=== PATIENT | female | born 1985 | race Hispanic/Latino ===

== ENCOUNTER 2016-11-25 23:17 | Emergency (ER) | payer SELFPAY ==
[2016-11-26 00:06] LABS: Bilirubin Negative (Negative); Blood, Urine Negative (Negative); Glucose, Urine (Dipstick) Negative (Negative); Ketone, Urine Negative (Negative); Nitrite Negative (Negative); Protein, Urine (Dipstick) Negative (Neg-Trace); Urobilinogen 0.2 mg/dL (0.2-1.0)
== END 2016-11-26 02:18 | disposition home or self-care (01) ==
LOC: ERS 23:17
DX: N76.4 Abscess of vulva (principal); F41.9 Anxiety disorder, unspecified; F32.9 Major depressive disorder, single episode, unspecified; F17.210 Nicotine dependence, cigarettes, uncomplicated; G47.00 Insomnia, unspecified
CPT/HCPCS: 81003; 81025; 99283

== ENCOUNTER 2017-03-27 14:00 | Emergency (ER) | payer SELFPAY ==
[2017-03-27 14:59] LABS: Bilirubin Negative (Negative); Blood, Urine Negative (Negative); Clarity CLEAR (Clear); Glucose, Urine (Dipstick) Negative (Negative); Leukocyte Negative (Negative); Nitrite Negative (Negative); Protein, Urine (Dipstick) Negative (Neg-Trace); Urobilinogen 0.2 mg/dL (0.2-1.0)
[2017-03-27 15:27] LABS: #Eosinphils 0.1 thou/uL (0.0-0.7); #Lymphocytes 2.4 thou/uL (1.20-3.40); #Monocytes 0.4 thou/uL (0.11-0.59); #Neutrophils 5.5 thou/uL (1.40-6.50); %Basophils 0.4 % (0.0-1.0); %Eosinophils 1.7 % (0.0-10.0); %Lymphocytes 28.1 % (21.0-51.0); %Neutrophils 64.7 % (42.0-75.0); Hemoglobin 14.7 g/dL (12.0-16.0); Mean Corpuscular HGB CONC 27.9 g/dL (32.0-36.0); Mean Corpuscular Hemoglobin 26.2 pg (27.0-31.0); Mean Platelet Volume 7.6 fL (7.4-10.4); Platelet Count 419 thou/uL (130-400); RBC Distribution Width 12.3 % (11.5-14.5); White Blood Cell (WBC) Count 8.4 thou/uL (4.8-10.8)
[2017-03-27 15:39] LABS: PLT Morphology Comment Appears Increased; RBC Morphology Normal
[2017-03-27 15:52] LABS: ALT (SGPT) 21 U/L (8-55); AST (SGOT) 16 U/L (5-34); Albumin 4.4 g/dL (3.5-5.0); Alkaline Phosphatase 89 U/L (40-150); Anion Gap 13 mmol/L (10-20); BUN (Urea Nitrogen) 9 mg/dL (7.0-18.7); Bilirubin, Total 0.4 mg/dL (0.2-1.2); Calc. Creatinine Clearance 0 mL/min (70-130); Calcium 9.7 mg/dL (7.8-10.44); Carbon Dioxide 19 mmol/L (22-29); Chloride 108 mmol/L (98-107); Estimated GFR-MDRD Greater than 90; Globulin 3.3 g/dL (2.4-3.5); Glucose 79 mg/dL (70-105); Potassium 3.9 mmol/L (3.5-5.1); Protein, Total 7.7 g/dL (6.0-8.3); Sodium 136 mmol/L (136-145)
--- NOTE | 2017-03-27 20:08 | ULT ---
PELVIC ULTRASOUND: Date: 03/27/17 HISTORY: 6 week patient. Cramping. COMPARISON: None. TECHNIQUE: Endovaginal imaging of pelvis performed. Ovaries interrogated with Villareal scale, color flow, Doppler im aging, and spectral waveform analysis. FINDINGS: Uterus identified, measuring 8.6 x 5.0 x 5.8 cm. No myometrial masses. Within the endometrium, there is a gestational sac and a yolk sac. Definite pole is not appreciated. Gestational age by mean sac diameter of 0.93 cm is 5 weeks/5 days. There is no free fluid. Left and right ovaries have a normal echotexture measuring 4.3 x 2.7 x 2.9 cm and 2.6 x 1.8 x 2.4 cm, respectively. OVARIAN DOPPLER: Vascular flow to both ovaries. IMPRESSION: Gestational sac and yolk sac within the endometrium. A definite pole is not seen. Gestational a ge by mean sac diameter is 5 weeks/5 days. Early intrauterine is favored. Follow-up ultraso und with serial beta HCGs are recommended. POS: [facility]
[2017-03-28 22:53] LABS: Chlamydia by PCR Not Detected (NotDetected); GC by PCR Not Detected (NotDetected)
== END 2017-03-27 20:57 | disposition home or self-care (01) ==
LOC: ERS 14:00
DX: O99.89 Other specified diseases and conditions complicating pregnancy, childbirth and the puerperium (principal); R10.30 Lower abdominal pain, unspecified; O99.331 Smoking (tobacco) complicating pregnancy, first trimester; F17.210 Nicotine dependence, cigarettes, uncomplicated; O99.341 Other mental disorders complicating pregnancy, first trimester; F41.9 Anxiety disorder, unspecified; F32.9 Major depressive disorder, single episode, unspecified; G47.00 Insomnia, unspecified; Z3A.01 Less than 8 weeks gestation of pregnancy
CPT/HCPCS: 36415; 76856; 80053; 81003; 84702; 85025; 87480; 87491; 87510; 87591; 87660

== ENCOUNTER 2017-05-13 03:43 | Emergency (ER) | payer OTHER, SELFPAY ==
[2017-05-13] MEDS ORDERED: Metoclopramide HCl 10 MG/2 ML VIAL ONE (04:27)
--- NOTE | 2017-05-13 09:17 | ULT ---
PRELIMINARY REPORT/[facility]/EMERGENCY AFTER HOURS PROCEDURE: EXAM: US After First Trimester, Transabdominal EXAM DATE/TIME: Exam ordered 05/13/2017 4:35 AM CLINICAL HISTORY: 32 years old, female; Pain and signs and symptoms; Lmp or gestational age (in weeks): 13w1d; Antepart um complications; Other: N/v/d; complicated by abdominal or pelvic pain; Left lower quadran t; Second trimester; TECHNIQUE: Real-time transabdominal obstetrical ultrasound of the maternal pelvis and a second or third trimeste r with image documentation. COMPARISON: No relevant prior studies available. FINDINGS: Fetus: There is a live intrauterine with estimated gestational age of 13 weeks 1 day. Heart rate: heart rate measures approximately 169 beats per minute. Presentation: Breech Placenta: The placenta is probably anterior. BIOMETRICS Gestational age by US: 13 weeks 1 day EFW: Gestation is too early for estimated weight. MATERNAL: Uterus: Normal. No myometrial mass. Cervix: Unremarkable as visualized. Closed. Adnexa: The LEFT ovary measures 3.4 x 2.2 x 2.9 cm. normal blood flow. The RIGHT ovary measures 2.6 x 2.9 x 1.9 cm. normal blood flow. Free fluid: No free fluid. IMPRESSION: There is a live intrauterine with estimated gestational age of 13 weeks 1 day. EXAM: US Duplex Arterial/Venous of the Pelvis, Complete EXAM DATE/TIME: Exam ordered 05/13/2017 4:35 AM CLINICAL HISTORY: 32 years old, female; Pain and signs and symptoms; Lmp or gestational age (in weeks): 13w1d; Antepart um complications; Other: N/v/d; complicated by abdominal or pelvic pain; Left lower quadran t; Second trimester; TECHNIQUE: Real-time duplex ultrasound scan of the arterial and venous flow of the pelvis with color Doppler david w and spectral waveform analysis. COMPARISON: No relevant prior studies available. FINDINGS: Right ovary: Normal. Normal arterial and venous blood flow. No torsion. Left ovary: Normal. Normal arterial and venous blood flow. No torsion. IMPRESSION: Normal duplex ultrasound of the ovaries. Thank you for allowing us to participate in the care of your patient. Dictated and Authenticated by: Joshua Diaz MD 05/13/2017 6:05 AM Central Time ([place] & [place]) FINAL REPORT LIMITED OB ULTRASOUND: Date: 05/13/17 FINDINGS/IMPRESSION: I agree with the preliminary report given by Dr. Joshua Diaz of [facility]. POS: OFF
== END 2017-05-13 06:22 | disposition home or self-care (01) ==
LOC: ERS 03:43
DX: O21.9 Vomiting of pregnancy, unspecified (principal); O99.341 Other mental disorders complicating pregnancy, first trimester; F32.9 Major depressive disorder, single episode, unspecified; F41.9 Anxiety disorder, unspecified; Z3A.13 13 weeks gestation of pregnancy
CPT/HCPCS: 76815; 96365; J2765

== ENCOUNTER 2017-06-12 20:52 | Emergency (ER) | payer OTHER ==
[2017-06-12 22:55] LABS: Bilirubin Negative (Negative); Blood, Urine Negative (Negative); Clarity CLEAR (Clear); Glucose, Urine (Dipstick) Negative (Negative); Leukocyte Negative (Negative); Nitrite Negative (Negative); Protein, Urine (Dipstick) Negative (Neg-Trace); Specific Gravity, Urine 1.011 (1.002-1.036); Urobilinogen 0.2 mg/dL (0.2-1.0); pH, Urine 6.5 (5.0-9.0)
[2017-06-12 22:56] LABS: Pregnancy Test - Urine (BHCG) POSITIVE (Negative); Pregu Control Background? CLEAR/WHITE (CLR/WHITE); Pregu Control Bar Appear? YES (CONTROL BAR); Specific Gravity 1.011 (1.002-1.036)
--- NOTE | 2017-06-12 23:06 | ULT ---
OB ULTRASOUND: Comparison: 05-13-17 History: 16-17 week , now with left lower quadrant abdominal/pelvic pain. Technique: Multiplanar grayscale and color doppler images were obtained in a transabdominal ult rasound. FINDINGS: There is a single live intrauterine with heart rate of 147 beats/minute. A limited to rvey was performed which is unremarkable. Average age of the fetus based off today's examination is 1 7 weeks 1 day. The following measurements were taken, as follows: BPD 3.64 cm 17 weeks 1 day HC 13.80 cm 17 weeks 1 day AC 11.81 cm 17 weeks 4 days FL 2.28 cm 15 weeks 6 days The placenta is on the right side of the uterus without evidence of placenta previa and without evide nce of abruption. Amniotic fluid volume is subjectively within normal limits. No free fluid is seen in the pelvis. The urinary bladder is unremarkable. No abnormality is seen in t he left adnexal region. IMPRESSION: Single live intrauterine with estimated age of 17 weeks 1 day. POS: [facility]
[2017-06-12 23:13] LABS: #Basophils 0.1 thou/uL (0.0-0.2); #Eosinphils 0.2 thou/uL (0.0-0.7); #Lymphocytes 3.4 thou/uL (1.20-3.40); #Monocytes 0.6 thou/uL (0.11-0.59); #Neutrophils 7.4 thou/uL (1.40-6.50); %Basophils 0.8 % (0.0-1.0); %Eosinophils 1.7 % (0.0-10.0); %Lymphocytes 28.9 % (21.0-51.0); %Monocytes 5.3 % (0.0-10.0); %Neutrophils 63.2 % (42.0-75.0); Hemoglobin 13.5 g/dL (12.0-16.0); Mean Corpuscular HGB CONC 34.2 g/dL (32.0-36.0); Mean Corpuscular Hemoglobin 30.9 pg (27.0-31.0); Mean Corpuscular Volume 90.4 fl (81.0-99.0); Mean Platelet Volume 7.5 fL (7.4-10.4); Platelet Count 283 thou/uL (130-400); RBC Distribution Width 12.8 % (11.5-14.5); Red Blood Cell (RBC) Count 4.38 mill/uL (4.20-5.40); White Blood Cell (WBC) Count 11.7 thou/uL (4.8-10.8)
[2017-06-12 23:31] LABS: Anion Gap 12 mmol/L (10-20); BUN (Urea Nitrogen) 7 mg/dL (7.0-18.7); Calc. Creatinine Clearance 0 mL/min (70-130); Carbon Dioxide 23 mmol/L (22-29); Chloride 106 mmol/L (98-107); Estimated GFR-MDRD Greater than 90; Glucose 99 mg/dL (70-105); Potassium 3.8 mmol/L (3.5-5.1); Sodium 137 mmol/L (136-145)
== END 2017-06-13 00:20 | disposition home or self-care (01) ==
LOC: ERS 20:52
DX: O99.89 Other specified diseases and conditions complicating pregnancy, childbirth and the puerperium (principal); R10.2 Pelvic and perineal pain; O99.342 Other mental disorders complicating pregnancy, second trimester; F41.9 Anxiety disorder, unspecified; F32.9 Major depressive disorder, single episode, unspecified; O99.352 Diseases of the nervous system complicating pregnancy, second trimester; G47.00 Insomnia, unspecified; Z3A.16 16 weeks gestation of pregnancy
CPT/HCPCS: 36415; 76815; 80048; 81003; 81025; 85025

== ENCOUNTER 2017-11-12 03:41 | Inpatient (IN) | payer OTHER ==
[2017-11-12 04:21] VITALS: BMI 47.2
[2017-11-12] MEDS ORDERED: Ondansetron HCl/PF 4 MG/2 ML Vial IVP PRN ×5 (04:58→16:15)
[2017-11-12] MEDS ORDERED: Lactated Ringer's 1,000 ML IV SCH ×3 (04:58→10:41)
[2017-11-12] MEDS ORDERED: Promethazine HCl 25 MG/ML VIAL IM PRN ×3 (04:58→16:15)
[2017-11-12] MEDS ORDERED: Bicitra 30 ML UDCUP ONE (05:11)
[2017-11-12] MEDS ORDERED: CEFAZOLIN/Water 2 GM/20 ML SYRINGE SLOW IVP SCH (05:15)
[2017-11-12 05:20] LABS: Hemoglobin 13.1 g/dL (12.0-16.0); Mean Corpuscular HGB CONC 32.9 g/dL (32.0-36.0); Mean Corpuscular Hemoglobin 29.4 pg (27.0-31.0); Mean Corpuscular Volume 89.3 fL (78.0-98.0); Mean Platelet Volume 8.5 fL (7.4-10.4); Platelet Count 262 thou/uL (130-400); RBC Distribution Width 12.9 % (11.5-14.5); Red Blood Cell (RBC) Count 4.46 mill/uL (4.20-5.40); White Blood Cell (WBC) Count 10.8 thou/uL (4.8-10.8)
[2017-11-12] MEDS ORDERED: Ondansetron HCl/PF 4 MG/2 ML Vial ONE ×2 (05:27→14:51)
[2017-11-12] MEDS ORDERED: ePHEDrine/0.9% NaCl/PF SYRINGE 50 mg/10 ml ONE ×2 (05:27→14:51)
[2017-11-12] MEDS ORDERED: Oxytocin 10 UNITS/ML VIAL ONE ×2 (05:27→06:20)
[2017-11-12] MEDS ORDERED: Morphine PF 1 MG/ML SYR ONE (05:27)
[2017-11-12] MEDS ORDERED: Bupivacaine 0.75% W/DEXTROSE 8.25% 2 ML AMP ONE (05:29)
[2017-11-12] MEDS ORDERED: Lidocaine 1% (PF) 30 ML VIAL ONE (05:29)
[2017-11-12] MEDS ORDERED: PHENYLEPHRINE-NS 100 MCG/ML 10 ML SYRINGE ONE ×2 (05:44→14:51)
[2017-11-12] MEDS ORDERED: Meperidine HCl/PF 25 MG/ML VIAL SLOW IVP PRN (05:48)
[2017-11-12] MEDS ORDERED: Naloxone HCl 0.4 mg/ml Vial IV PRN ×4 (05:48→16:15)
[2017-11-12] MEDS ORDERED: Hydrocerin (Eucerin) Cream 120 gm Jar TOP PRN ×2 (05:48→16:15)
[2017-11-12] MEDS ORDERED: HYDROmorphone 2 MG/ML VIAL SLOW IVP PRN (05:48)
[2017-11-12] MEDS ORDERED: Naloxone HCl 0.4 mg/ml Vial IVP PRN ×2 (05:48)
[2017-11-12] MEDS ORDERED: Ketorolac Tromethamine 30 MG/ML VIAL IVP PRN ×2 (05:48→16:15)
[2017-11-12] MEDS ORDERED: diphenhydrAMINE 50 MG/ML VIAL IVP PRN ×2 (05:48→16:15)
[2017-11-12] MEDS ORDERED: Promethazine HCl 25 MG SUPP PR PRN ×2 (05:48→16:15)
[2017-11-12] MEDS ORDERED: Communication Order-Pharmacy FS SCH (06:00)
[2017-11-12] MEDS ORDERED: Ketorolac Tromethamine 30 MG/ML VIAL IVP SCH (06:00)
[2017-11-12] MEDS ORDERED: Meperidine HCl/PF 25 MG/ML VIAL IM PRN (10:41)
[2017-11-12] MEDS ORDERED: NS / Oxytocin 40 units/1000ml 1,000 ML IV SCH (10:41)
[2017-11-12] MEDS ORDERED: Lanolin Ointment 7 GM TUBE TOP PRN (10:41)
[2017-11-12] MEDS ORDERED: Ibuprofen 800 MG TAB PO SCH (14:00)
[2017-11-12] MEDS ORDERED: NO PO,IM,IV OR SC NARCOTICS FOR 12HR EXCEPT BY ANESTHESIA PO SCH (16:15)
[2017-11-12] MEDS ORDERED: HYDROcodone/Acetaminophen 5/325 mg Tablet PO PRN ×2 (18:00)
[2017-11-12] MEDS: Docusate Calcium (SURFAK) 240 MG CAP PO SCH (20:20)
[2017-11-12] MEDS: Ferrous Sulfate 325 MG TAB PO SCH (21:22)
[2017-11-12 22:29] LABS: Hemoglobin 11.4 g/dL (12.0-16.0); Mean Corpuscular HGB CONC 33.8 g/dL (32.0-36.0); Mean Corpuscular Hemoglobin 30.5 pg (27.0-31.0); Mean Corpuscular Volume 90.1 fL (78.0-98.0); Mean Platelet Volume 8.9 fL (7.4-10.4); Platelet Count 249 thou/uL (130-400); Red Blood Cell (RBC) Count 3.74 mill/uL (4.20-5.40); White Blood Cell (WBC) Count 8.8 thou/uL (4.8-10.8)
[2017-11-12] MEDS: Zolpidem Tartrate 5 MG TAB PO PRN (22:51)
[2017-11-13] MEDS ORDERED: Meperidine HCl/PF 25 MG/ML VIAL IM PRN (04:15)
[2017-11-13] MEDS ORDERED: HYDROcodone/Acetaminophen 5/325 mg Tablet PO PRN (04:15)
[2017-11-13 04:56] LABS: Mean Corpuscular Hemoglobin 30.8 pg (27.0-31.0); Mean Corpuscular Volume 90.4 fL (78.0-98.0); Mean Platelet Volume 8.1 fL (7.4-10.4); Platelet Count 233 thou/uL (130-400); RBC Distribution Width 12.8 % (11.5-14.5); Red Blood Cell (RBC) Count 3.56 mill/uL (4.20-5.40); White Blood Cell (WBC) Count 10.1 thou/uL (4.8-10.8)
[2017-11-13] MEDS: Ibuprofen 800 MG TAB PO SCH ×3 (06:08→21:36)
[2017-11-13] MEDS: Docusate Calcium (SURFAK) 240 MG CAP PO SCH ×2 (08:43→21:35)
[2017-11-13] MEDS: Prenatal Vitamin 1 TAB PO SCH (08:43)
[2017-11-13] MEDS: Ferrous Sulfate 325 MG TAB PO SCH ×2 (08:46→21:36)
[2017-11-13] MEDS: HYDROcodone/Acetaminophen 5/325 mg Tablet PO PRN (14:28)
[2017-11-13] MEDS ORDERED: Ondansetron ODT 4 MG TAB PO PRN (19:37)
[2017-11-13] MEDS: Simethicone Chewable 80 MG TAB PO PRN (21:42)
[2017-11-13] MEDS ORDERED: Ibuprofen 800 MG TAB PO SCH (22:00)
[2017-11-13] MEDS: Zolpidem Tartrate 5 MG TAB PO PRN (23:11)
[2017-11-14] MEDS: Simethicone Chewable 80 MG TAB PO PRN ×2 (04:41→11:27)
[2017-11-14] MEDS: HYDROcodone/Acetaminophen 5/325 mg Tablet PO PRN (04:42)
[2017-11-14] MEDS: Ibuprofen 800 MG TAB PO SCH ×2 (06:19→13:46)
[2017-11-14 08:54] VITALS: BP 110/60; TEMP 98.5
[2017-11-14] MEDS: Docusate Calcium (SURFAK) 240 MG CAP PO SCH (09:22)
[2017-11-14] MEDS: Ferrous Sulfate 325 MG TAB PO SCH (09:22)
[2017-11-14] MEDS: Prenatal Vitamin 1 TAB PO SCH (09:22)
[2017-11-14] MEDS ORDERED: Milk Of Magnesia 30 ML UDCUP PO SCH (17:30)
== END 2017-11-14 19:13 | disposition home or self-care (01) | DRG 765 ==
LOC: L&D/OP 03:41 → L&D 04:25 → 3SW 10:40
PROVIDERS: ADMIT Family Medicine; ATTEND Family Medicine
PROC: 10D00Z1 Extraction of Products of Conception, Low, Open Approach (ICD-10-PCS; principal; 2017-11-12)
DX: O34.211 Maternal care for low transverse scar from previous cesarean delivery (principal); Z68.42 Body mass index [BMI] 45.0-49.9, adult; Z3A.38 38 weeks gestation of pregnancy; Z37.0 Single live birth; O69.81X0 Labor and delivery complicated by cord around neck, without compression, not applicable or unspecified; O99.214 Obesity complicating childbirth; E66.01 Morbid (severe) obesity due to excess calories
CPT/HCPCS: 36415; 51702; 85027; 86850; 86900; 86901; 99285; J1885; J2001; J2274; J2405; J2590; J3490; Q0162

== ENCOUNTER 2017-11-14 23:42 | Emergency (ER) | payer OTHER ==
[2017-11-15 00:35] LABS: #Eosinphils 0.2 thou/uL (0.0-0.7); #Lymphocytes 1.4 thou/uL (1.20-3.40); #Monocytes 0.4 thou/uL (0.11-0.59); #Neutrophils 6.8 thou/uL (1.40-6.50); %Basophils 0.4 % (0.0-1.0); %Eosinophils 2.1 % (0.0-10.0); %Lymphocytes 16.1 % (21.0-51.0); %Neutrophils 76.5 % (42.0-75.0); Hemoglobin 11.4 g/dL (12.0-16.0); Mean Corpuscular HGB CONC 34.1 g/dL (32.0-36.0); Mean Corpuscular Hemoglobin 30.8 pg (27.0-31.0); Mean Corpuscular Volume 90.6 fL (78.0-98.0); Platelet Count 313 thou/uL (130-400); RBC Distribution Width 12.9 % (11.5-14.5); Red Blood Cell (RBC) Count 3.68 mill/uL (4.20-5.40); White Blood Cell (WBC) Count 8.9 thou/uL (4.8-10.8)
[2017-11-15 01:01] LABS: ALT (SGPT) 62 U/L (8-55); AST (SGOT) 46 U/L (5-34); Albumin 3.4 g/dL (3.5-5.0); Alkaline Phosphatase 228 U/L (40-150); Anion Gap 14 mmol/L (10-20); BUN (Urea Nitrogen) 8 mg/dL (7.0-18.7); Bilirubin, Total 0.5 mg/dL (0.2-1.2); Calc. Creatinine Clearance 0 mL/min (70-130); Calcium 9.4 mg/dL (7.8-10.44); Carbon Dioxide 23 mmol/L (22-29); Chloride 108 mmol/L (98-107); Estimated GFR-MDRD Greater than 90; Globulin 3.2 g/dL (2.4-3.5); Glucose 109 mg/dL (70-105); Potassium 4.2 mmol/L (3.5-5.1); Protein, Total 6.6 g/dL (6.0-8.3); Sodium 141 mmol/L (136-145)
[2017-11-15] MEDS ORDERED: Lorazepam 1 MG TAB ONE (01:33)
[2017-11-15 02:08] LABS: CKMB 0.7 ng/mL (0-6.6); Troponin I Less than 0.010 ng/mL (< 0.028)
--- NOTE | 2017-11-15 09:00 | RAD ---
AP VIEW OF THE CHEST: INDICATION: Chest pain and state. COMPARISON: Prior chest radiograph dated January 07, 2016. FINDINGS: Lungs are clear. Heart size is accentuated by the exam technique. There is an apical lordotic proje ction of the upper chest. No confluent airspace opacity or pleural effusion is noted. No acute osse ous abnormality is noted. IMPRESSION: No acute cardiopulmonary abnormality within the limitations of the exam. POS: [facility]
--- NOTE | 2017-11-19 11:32 | EKG ---
Test Reason : CHEST PAIN Blood Pressure : / mmHG Vent. Rate : 074 BPM Atrial Rate : 074 BPM P-R Int : 118 ms QRS Dur : 086 ms QT Int : 378 ms P-R-T Axes : 027 -01 011 degrees QTc Int : 419 ms Normal sinus rhythm Normal ECG Confirmed by ISABEL LANZA, GENA ([id number]), deputy editor in chief GALINA YI ([id number]) on 11/19/2017 11:32:11 AM Referred By: Confirmed By:GENA HALL MD
== END 2017-11-15 02:31 | disposition home or self-care (01) ==
LOC: ERS 23:42
DX: F41.1 Generalized anxiety disorder (principal); R07.9 Chest pain, unspecified; G47.00 Insomnia, unspecified; F41.9 Anxiety disorder, unspecified; F32.9 Major depressive disorder, single episode, unspecified; Z79.1 Long term (current) use of non-steroidal anti-inflammatories (NSAID); Z79.899 Other long term (current) drug therapy; Z79.891 Long term (current) use of opiate analgesic
CPT/HCPCS: 36415; 71045; 80053; 82553; 84484; 85025; 93005

== ENCOUNTER 2018-05-28 17:46 | Emergency (ER) | payer OTHER, SELFPAY | END 2018-05-28 18:35 | disposition home or self-care (01) | LOC: ERS 17:46 | DX: J06.9 Acute upper respiratory infection, unspecified (principal); F32.9 Major depressive disorder, single episode, unspecified; F41.9 Anxiety disorder, unspecified; G47.00 Insomnia, unspecified; Z87.891 Personal history of nicotine dependence | CPT/HCPCS: 99283 ==

== ENCOUNTER 2018-06-06 21:32 | Emergency (ER) | payer SELFPAY ==
--- NOTE | 2018-06-06 22:19 | RAD ---
PA AND LATERAL VIEWS OF THE CHEST: 06/06/18 HISTORY: Shortness of breath. FINDINGS: Comparison made with exam of 01/07/16. The cardiomediastinum is normal. The lungs are expanded and clear. The bony thorax is normal. IMPRESSION: Normal exam. POS: [facility]
== END 2018-06-06 23:26 | disposition home or self-care (01) ==
LOC: ERS 21:32
DX: R06.00 Dyspnea, unspecified (principal); G47.00 Insomnia, unspecified; F41.9 Anxiety disorder, unspecified; F32.9 Major depressive disorder, single episode, unspecified; F17.210 Nicotine dependence, cigarettes, uncomplicated
CPT/HCPCS: 71046; 93005

== ENCOUNTER 2018-06-30 12:22 | Emergency (ER) | payer OTHER, SELFPAY ==
[2018-06-30 12:50] LABS: Bilirubin Negative (Negative); Blood, Urine Negative (Negative); Clarity CLEAR (Clear); Glucose, Urine (Dipstick) Negative (Negative); Leukocyte Negative (Negative); Nitrite Negative (Negative); Protein, Urine (Dipstick) Negative (Neg-Trace); Specific Gravity, Urine 1.017 (1.002-1.036); Urobilinogen 0.2 mg/dL (0.2-1.0)
[2018-06-30 13:02] LABS: #Basophils 0.1 thou/uL (0.0-0.2); #Eosinphils 0.3 thou/uL (0.0-0.7); #Lymphocytes 3.2 thou/uL (1.20-3.40); #Monocytes 0.6 thou/uL (0.11-0.59); #Neutrophils 6.8 thou/uL (1.40-6.50); %Basophils 0.9 % (0.0-1.0); %Eosinophils 2.5 % (0.0-10.0); %Lymphocytes 29.1 % (21.0-51.0); %Monocytes 5.3 % (0.0-10.0); %Neutrophils 62.2 % (42.0-75.0); Hemoglobin 14.7 g/dL (12.0-16.0); Mean Corpuscular HGB CONC 33.9 g/dL (32.0-36.0); Mean Corpuscular Hemoglobin 30.1 pg (27.0-31.0); Mean Corpuscular Volume 88.6 fL (78.0-98.0); Mean Platelet Volume 8.2 fL (7.4-10.4); Platelet Count 330 thou/uL (130-400); RBC Distribution Width 13.2 % (11.5-14.5); White Blood Cell (WBC) Count 10.9 thou/uL (4.8-10.8)
--- NOTE | 2018-06-30 13:47 | ULT ---
ULTRASOUND PELVIC ULTRASOUND TRANSVAGINAL DOPPLER DUPLEX: DATE: 06/30/2018 HISTORY: 33-year-old female with pelvic pain and vaginal bleeding. Rule out ectopic . TECHNIQUE: Transabdominal transducer and endovaginal transducer used to visualize intrapelvic contents with fuentes scale, color-flow, and spectral analysis. FINDINGS: There are 2 separate intrauterine gestational sacs. Minimal sac diameter for both of them are approxi mately 0.9 cm, corresponding to estimated gestational age of 5 weeks 5 days. Yolk sacs are present within each. No pole is visualized. No subchorionic hemorrhage. No free fluid in the cul-de-sac. No evidence of subchorionic hemorrhage. Bilateral ovaries are within normal limits in size. Blood flow demonstrated in both ovaries by Dopple r. No corpus luteal cyst. IMPRESSION: First trimester diamniotic twin gestational sacs containing yolk sacs. No embryonic pole is visualize d. Estimated gestational age of 5 weeks 5 days by mean sac diameter. Recommend follow-up serial beta hCG levels, and if clinically indicated, follow-up pelvic and transva ginal ultrasounds.
[2018-07-04 20:09] LABS: Chlamydia by PCR Not Detected (NotDetected); GC by PCR Not Detected (NotDetected)
== END 2018-06-30 14:52 | disposition home or self-care (01) ==
LOC: ERS 12:22
DX: O20.0 Threatened abortion (principal); O23.591 Infection of other part of genital tract in pregnancy, first trimester; B96.89 Other specified bacterial agents as the cause of diseases classified elsewhere; O99.341 Other mental disorders complicating pregnancy, first trimester; F32.9 Major depressive disorder, single episode, unspecified; F41.9 Anxiety disorder, unspecified; O99.351 Diseases of the nervous system complicating pregnancy, first trimester; G47.00 Insomnia, unspecified; O99.331 Smoking (tobacco) complicating pregnancy, first trimester; F17.210 Nicotine dependence, cigarettes, uncomplicated; Z3A.08 8 weeks gestation of pregnancy
CPT/HCPCS: 36415; 76856; 81003; 84702; 85025; 86850; 86900; 86901; 87480; 87491; 87510; 87591; 87660

== ENCOUNTER 2019-01-04 11:59 | Day surgery (SDC) | payer OTHER ==
[2019-01-04 12:55] VITALS: BMI 48.2
[2019-01-04 12:56] VITALS: BP 107/66; TEMP 97.9
--- NOTE | 2019-01-04 13:51 | ULT ---
ULTRASOUND BIOPHYSICAL PROFILE: DATE: 01/04/2019 HISTORY: 33-year-old female with diamniotic, dichorionic twin gestation,, with nonreactive nonstress test. FINDINGS: Fetus A: breathin tone: 2 movement: 2 Amniotic fluid volume: 2 Fetus B: breathin tone: 2 movement: 2 Amniotic fluid volume: 2 IMPRESSION: 1. Twin A: Normal biophysical profile score of 8 out of 8, excluding the nonstress test. 2. Twin B: Normal biophysical profile score of 8 out of 8, excluding the nonstress test.
--- NOTE | 2019-01-04 13:56 | ULT ---
ULTRASOUND BIOPHYSICAL PROFILE: DATE: 01/04/2019 HISTORY: 33-year-old female with diamniotic, dichorionic twin gestation,, with nonreactive nonstress test. FINDINGS: Fetus A: breathin tone: 2 movement: 2 Amniotic fluid volume: 2 lie: Cephalic. heart rate: 136 BPM. Fetus B: breathin tone: 2 movement: 2 Amniotic fluid volume: 2 heart rate: 153 bpm PRATEEK: 13.5 cm. IMPRESSION: 1. Twin A: Normal biophysical profile score of 8 out of 8, excluding the nonstress test. 2. Twin B: Normal biophysical profile score of 8 out of 8, excluding the nonstress test.
--- NOTE | 2019-01-09 11:33 | SS ---
DATE OF ADMISSION: 01/04/2019 DATE OF DISCHARGE: 01/04/2019 PRINCIPAL DIAGNOSES: 1. 32 weeks estimated gestational age. 2. Dichorionic diamniotic twins. 3. Gestational diabetes mellitus, on insulin. 4. Morbid obesity. HISTORY OF PRESENT ILLNESS: This is a 33-year-old female, G4, P3, at 32 weeks and 3 days estimated gestational age, admitted for extended monitoring and biophysical profile after presentation to the office for routine care and nonstress testing there that showed a nonreactive NST. No other complaints. Normal activity. No pain or bleeding. No contractions. PAST MEDICAL HISTORY: Morbid obesity. PAST SURGICAL HISTORY: Previous x2. SOCIAL HISTORY: No tobacco, alcohol, or drugs. FAMILY HISTORY: Positive for diabetes in multiple relatives. PHYSICAL EXAMINATION: VITAL SIGNS: She is afebrile. Her vital signs are normal. GENERAL: She is in no acute distress. Morbidly obese. HEENT: Unremarkable. LUNGS: Clear. HEART: Regular rate and rhythm. ABDOMEN: Soft and nontender. LABOR AND DELIVERY COURSE: Ms. Klein was observed in Labor and delivery. She underwent biophysical profile that scored 10/10 for both fetuses. Umbilical artery Dopplers were also normal. Her monitoring in the Labor and Delivery Unit showed baseline 135 to 140 with accelerations and moderate variabilities. DISCHARGE INSTRUCTIONS: Activity, as tolerated. Diet, controlled carbohydrate diet as instructed. Follow up in 1 week. Job ID: [id number]
== END 2019-01-04 13:00 | disposition home or self-care (01) ==
LOC: L&D/OP 11:59
PROVIDERS: ATTEND Family Medicine
DX: O36.8391 Maternal care for abnormalities of the fetal heart rate or rhythm, unspecified trimester, fetus 1 (principal); O36.8392 Maternal care for abnormalities of the fetal heart rate or rhythm, unspecified trimester, fetus 2; O30.049 Twin pregnancy, dichorionic/diamniotic, unspecified trimester; O24.419 Gestational diabetes mellitus in pregnancy, unspecified control; Z3A.00 Weeks of gestation of pregnancy not specified
CPT/HCPCS: 76819